=== PATIENT | female | born 1975 | race Caucasian/White ===

== ENCOUNTER → 2018-05-01 10:26 | Outpatient (CLI) | payer OTHER, SELFPAY ==
--- NOTE | 2018-05-01 10:31 | DI.RAD.S_ITS ---
PROCEDURE: XR SHOULDER RT MIN 2V INDICATIONS: shoulder pain s/p arthroscropy TECHNIQUE: 3 views of the shoulder were acquired. COMPARISON: None. FINDINGS: Bones: No fractures or dislocations but there is a mild degree of a.c. joint osteoarthritis.. No suspicious bony lesions. Visualized ribs appear intact. Soft tissues: Within the subacromial/subdeltoid bursal space there appears to be an intra-articular loose body, seen on all 3 views, measuring up to 1.9 cm transverse and approximately 4 mm in craniocaudad dimension.. IMPRESSION: Mild osteoarthritis at the a.c. joint. Moderate-sized intra-articular loose body in the subacromial/subdeltoid bursal space. Dictated by: Mack Wagner M.D. on 05/01/2018 at 12:38 Approved by: Mack Wagner M.D. on 05/01/2018 at 12:40
== END ==
PROVIDERS: PCP Family Medicine; Visit Provider Physical Medicine & Rehabilitation
DX: M54.2 Cervicalgia (principal); M25.511 Pain in right shoulder; M19.011 Primary osteoarthritis, right shoulder; M24.011 Loose body in right shoulder
CPT/HCPCS: 73030